=== PATIENT | female | born 1970 | race Hispanic/Latino ===

== ENCOUNTER 2018-09-16 11:51 | Emergency (ER) | payer SELFPAY ==
[2018-09-16] MEDS ORDERED: GEODON IM PRN (12:45)
--- NOTE | 2018-09-16 12:53 | Emergency Department Report ---
ED Psych HPI - General Chief Complaint: Psych Stated Complaint: ALTERED MENTAL Time Seen by Provider: 09/16/18 12:36 Source: patient, police Mode of arrival: Ambulatory - History of Present Illness Initial Comments: This is a 47-year-old female that was here last night complaining of chest pain. She has no active complaining of chest pain now. She was offered admission I believe but declined. She went home and apparently had some paranoid ideation related to her dogs being taking away. The police arrived at her home. She stated that she wanted to kill herself and that she was going to use a knife. There by a law enforcement executed was completed and the patient was transported to the emergency department. On arrival, the patient is acting quite paranoid with respect to interactions with the security guards and other staff. She also states that she's too anxious to sit in a chair. When I speak with her if she is currently denying active suicidal ideation. However she is currently paranoid. She has some looseness of association. She admits that she "doesn't like medicine" although she has been prescribed psychiatric medications past. She states that she was admitted to a psychiatric facility "about 15 years ago" for "anxiety". MD Complaint: suicidal ideation, other -: unknown (paranoid ideation) Associated Psychiatric Symptoms: suicidal ideation History of same: Yes (likely) Quality: intermittent Improves With: none Worsens With: none Context: not taking psychiatric Associated Symptoms: denies other symptoms Treatments Prior to Arrival: placed on mental he - Related Data Allergies Allergy/AdvReac Type Severity Reaction Status Date / Time promethazine [From Phenergan] Allergy Rash Verified 09/16/18 02:14 ED Review of Systems ROS: Stated complaint: ALTERED MENTAL Other details as noted in HPI Constitutional: denies: chills, fever Eyes: denies: eye pain, eye discharge, vision change ENT: denies: ear pain, throat pain Respiratory: denies: cough, shortness of breath, wheezing Cardiovascular: denies: chest pain (now resolved), palpitations Endocrine: no symptoms reported Gastrointestinal: denies: abdominal pain, nausea, diarrhea Genitourinary: denies: urgency, dysuria, discharge Musculoskeletal: denies: back pain, joint swelling, arthralgia Skin: denies: rash, lesions Neurological: denies: headache, weakness, paresthesias Psychiatric: anxiety, suicidal thoughts. denies: depression Hematological/Lymphatic: denies: easy bleeding, easy bruising ED Past Medical Hx - Past Medical History Previous Medical History?: Yes Hx CVA: Yes Hx Congestive Heart Failure: Yes Hx Psychiatric Treatment: Yes - Surgical History Past Surgical History?: Yes Additional Surgical History: c sec - Social History Smoking Status: Current Every Day Smoker (1 pack per day) Substance Use Type: None (denies illicit drug use) ED Physical Exam - General Limitations: Other (psychiatric disorder) General appearance: alert, in no apparent distress - Head Head exam: Present: atraumatic, normocephalic - Eye Eye exam: Present: normal appearance. Absent: scleral icterus - ENT ENT exam: Present: mucous membranes moist - Neck Neck exam: Present: normal inspection. Absent: tenderness, meningismus - Respiratory Respiratory exam: Present: normal lung sounds bilaterally. Absent: respiratory distress - Cardiovascular Cardiovascular Exam: Present: regular rate, normal rhythm. Absent: systolic murmur, diastolic murmur, rubs, gallop - GI/Abdominal GI/Abdominal exam: Present: soft, normal bowel sounds. Absent: distended, tenderness, guarding, rebound, rigid - Extremities Exam Extremities exam: Present: normal inspection. Absent: pedal edema - Back Exam Back exam: Present: normal inspection - Neurological Exam Neurological exam: Present: alert, oriented X3, CN II-XII intact, normal gait. Absent: motor sensory deficit - Psychiatric Psychiatric exam: Present: anxious, flat affect, other (paranoid ideation) - Skin Skin exam: Present: warm, dry, intact, normal color. Absent: rash ED Course - Reevaluation(s) Reevaluation #1: Discussed with mental health counselor. The patient is placed on a 1013 with the criteria of a paranoid psychiatric disorder and suicidal ideation. 09/16/18 14:33 ED Medical Decision Making - Lab Data Laboratory Results - last 24 hr 09/16/18 13:43 Total Creatine Kinase 210 H CK-MB (CK-2) 2.9 CK-MB (CK-2) Rel Index 1.3 Troponin T < 0.010 Critical care attestation.: If time is entered above; I have spent that time in minutes in the direct care of this critically ill patient, excluding procedure time. ED Disposition Clinical Impression: Paranoid psychosis, Suicidal ideation Disposition: [id number]/TX-65 PSY HOSP/PSY UNIT Is pt being admited?: No Does the pt Need Aspirin: No Condition: Stable Time of Disposition: 14:34
[2018-09-16 14:22] LABS: Creatine Kinase MB 2.9 ng/mL (0.0-4.0)
[2018-09-16 19:09] LABS: Bacteria,Urine 1+ /HPF (Negative); Bilirubin,Urine NEG (Negative); Blood,Urine SM (Negative); Color,Urine Yellow (Yellow); Mucus,Urine 1+ /HPF; Protein,Urine <15 mg/dL mg/dL (Negative); Urobilinogen,Urine < 2.0 mg/dL (<2.0)
[2018-09-16 19:10] LABS: Amphetamine Screen,Urine PRESUMPTIVE NEGATIVE; Benzodiazepines Screen,Urine PRESUMPTIVE NEGATIVE; Cannabinoid Screen,Urine PRESUMPTIVE NEGATIVE; Cocaine Screen,Urine PRESUMPTIVE NEGATIVE; HCG Qualitative,Urine Negative (Negative); Methadone Screen,Urine PRESUMPTIVE NEGATIVE; Opiate Screen,Urine PRESUMPTIVE NEGATIVE
--- NOTE | 2018-09-17 13:09 | Consultation ---
History of Present Illness - Reason for Consult Consult date: 09/17/18 Reason for consult: Mental Health EValuation Requesting physician: NIKHIL GOMEZ - Chief Complaint Chief complaint: "It's about my dogs" - History of Present Psychiatric Illness 47 y.o. female who presented to the ER for bizarre behavior. The patient was seen earlier yesterday fro chest pain. Today the patient was somewhat jeff ative during the assessment. She decided to leave the hospital before she was fully assessed by the ER Physician. Per the patient, she called the police once she left the hospital because she had an issue with her dogs that she could not explain when asked. During the interview, she was asked several questions about her behavior, but her answers were not logical. She paused and looked around for several mins before answering questions, possibly responding to some type of stimuli. She kept tissue paper close to her mouth throughout the interview, she stated that she was having issues with the pollen in the hospital. She stated that her sleep have been "off" the past couple of days. She stated that she have been to a mental health facility in the past. She denies SI/HI's and AVH's. She denies a poor appetite, recreational drug use, a poor appetite, and alcohol consumption (etoh). Medications and Allergies Allergies Allergy/AdvReac Type Severity Reaction Status Date / Time promethazine [From Phenergan] Allergy Rash Verified 09/16/18 02:14 Home Medications Medication Instructions Recorded Confirmed Last Taken Type Unobtainable 09/16/18 09/16/18 Unknown History Active Meds: Active Medications Ziprasidone (Geodon) 10 mg IM Q12H PRN PRN Reason: Agitation Past psychiatric history - Past Medical History Past Medical History: No medical history Past Surgical History: No surgical history - past Psychiatric treatment and history psychiatric treatment history: Inpatient psy services setting sin the past. Denies a fam psy hx. Mental Status Exam - Vital signs Last Vital Signs Temp 98.4 F 09/17/18 10:17 Pulse 63 09/17/18 10:17 Resp 18 09/17/18 10:17 BP 117/81 09/17/18 10:17 Pulse Ox 99 09/17/18 10:17 - Exam Narrative exam: MSE: Appearance: calm Behavior: regular eye contact Speech: regular rate and tone Mood: preoccupied Affect: congruent to mood Thought Process: loose associations Thought Content: denies SI/HI's and AVH', paranoia, delusional Motor Activity: sitting up in the bed Cognition: A/O x 3 Insight: poor Judgment: poor Results Abnormal lab results 09/16/18 09/16/18 Range/Units 13:43 13:43 Total Creatine Kinase 210 H (30-135) units/L Acetaminophen < 5.0 L (10.0-30.0) ug/mL All other labs normal. Assessment and Plan Assessment and plan: Impression: Unspecified Psychosis. Today the patient was somewhat cooperative during the assessment. UDS was negative. DDx: Bipolar DO with psychosis, R/O Schizophrenia Recommendation/Plan: Continue 1013. Start Geodon 20 mg Po BID for psychosis and Cogentin 0.5 mg PO BID for EPS prevention. Discussed possible metabolic side effects of Geodon with the patient, she verbalized understanding. Give Geodon with food. Dispo: The patient was referred to inpatient psy services. Staffed with Dr. Guzman Pat
[2018-09-17] MEDS: GEODON PO SCH ×2 (17:38→21:55)
[2018-09-17] MEDS: COGENTIN PO SCH ×2 (17:38→21:55)
[2018-09-17] MEDS ORDERED: HABITROL TD ONE (19:06)
[2018-09-18] MEDS: COGENTIN PO SCH ×2 (10:32→22:25)
[2018-09-18] MEDS: GEODON PO SCH ×2 (10:32→22:26)
--- NOTE | 2018-09-18 13:20 | Progress Note ---
Subjective - Reason for Consult Consult date: 09/18/18 Reason for consult: Psychiatric Follow-up Evaluation - Chief Complaint Chief complaint: "I feel good" Patient is a 47 y.o. female who presented to the ER for bizarre behavior. Today the patient is cooperative but anxious during the assessment. Today patient is unable to answer questions directly. Her answers to questions are not logical. Patient thoughts are tangential with flight of ideas. She states, " ma'am I hadn't slept in days. 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 I had to run through the [employer] for security clearance." She denies SI/HI's and A/VH's. Patient continues to have delusional thinking. Patient refused Geodon. Patient is noncompliant with medication. Mental Status Exam - Vital signs Last Vital Signs Temp 97.6 F 09/18/18 10:04 Pulse 75 09/18/18 10:04 Resp 16 09/18/18 10:04 BP 135/71 09/18/18 10:04 Pulse Ox 100 09/18/18 10:04 - Exam Narrative exam: Mental Status Exam: Appearance: calm Behavior: regular eye contact Speech: rapid rate and normal tone Mood: " I feel good" ; anxious, irritable Affect: congruent to mood Thought Process: tangential, flight of ideas Thought Content: denies SI/HI's and AVH's ; delusions- paranoia/believes her ex boyfriend is out to harm her. Motor Activity: ambulatory Cognition: A/O x 3 Insight: poor Judgment: poor Assessment and Plan Impression: Unspecified Psychosis. Today the patient was cooperative but anxious during the assessment. She continues to have rapid speech, paranoid delusions, and tangential thoughts. UDS was negative. DDx: Bipolar DO with psychosis, R/O Schizophrenia Recommendation/Plan: 1. Continue 1013. 2. Start/Continue Geodon 20 mg Po BID for psychosis and Cogentin 0.5 mg PO BID for EPS prevention. Discussed possible metabolic side effects of Geodon with the patient, she verbalized understanding. Give Geodon with food. 3. Encouraged medication compliance. Disposition: The patient was referred to inpatient psychiatric services. Staffed with Dr. Guzman Pat
[2018-09-19] MEDS: GEODON PO SCH ×2 (10:51→22:16)
[2018-09-19] MEDS: COGENTIN PO SCH ×2 (10:51→22:16)
--- NOTE | 2018-09-19 11:14 | Progress Note ---
Subjective - Reason for Consult Consult date: 09/19/18 Reason for consult: Psychiatry Follow-up - Chief Complaint Chief complaint: "I am okay" 47 y.o. female who presented to the ER for bizarre behavior. Today the patient was calm during the assessment. Her answer to questions are not logical. She is adamant that she has several job interviews and need [employer] security clearance. She is refusing her Gdodon per the MAR. She denies SI/HI's and AVH's. Mental Status Exam - Vital signs Last Vital Signs Temp 98 F 09/19/18 01:00 Pulse 65 09/19/18 01:00 Resp 18 09/19/18 01:00 BP 104/70 09/19/18 01:00 Pulse Ox 99 09/19/18 01:00 - Exam Narrative exam: MSE: Appearance: calm Behavior: regular eye contact Speech: regular rate and tone Mood: "okay" Affect: flat Thought Process: circumstantial Thought Content: denies SI/HI's and AVH', delusional Motor Activity: sitting up in the bed Cognition: A/O x 3 Insight: poor Judgment:variable Assessment and Plan Impression: Unspecified Psychosis. Today the patient is calm during the assessment. UDS was negative. DDx: Bipolar DO with psychosis, R/O Schizophrenia Recommendation/Plan: Continue 1013, Geodon 20 mg PO BID for psychosis, and Cogentin 0.5 mg PO BID for EPS prevention. Discussed possible metabolic side effects of Geodon with the patient, she verbalized understanding. Give Geodon with food. Dispo: The patient was referred to inpatient psy services. Will staff with Dr. Guzman Pat
[2018-09-20 06:34] LABS: Hematocrit 38.3 % (30.3-42.9); Hemoglobin 13.1 gm/dl (10.1-14.3); Mean Corpuscular HGB Conc 34 % (30-34); Mean Corpuscular Volume 87 fl (79-97); Platelet Count 206 K/mm3 (140-440); Red Blood Count 4.39 M/mm3 (3.65-5.03); Red Cell Distribution Width 13.2 % (13.2-15.2)
[2018-09-20] MEDS: GEODON PO SCH ×2 (10:49→22:27)
[2018-09-20] MEDS: COGENTIN PO SCH ×2 (10:49→22:27)
--- NOTE | 2018-09-20 15:36 | Progress Note ---
Subjective - Reason for Consult Consult date: 09/20/18 Reason for consult: Psychiatry Follow-up - Chief Complaint Chief complaint: When can I leave" 47 y.o. female who presented to the ER for bizarre behavior. Today the patient was calm during the assessment. She still present with delusional thoughts reference job interviews. Per collateral information from patient's daughter Stacey Cortez at [phone], she stated that the patient have been "p aranoid" for several months. She stated that her mother have been making irrational decisions lately. She stated that she wasn't aware her mother was traveling from [place] to [place] with one set of clothes. She stated that the patient have been hospitalized in the past for psychosis and SI's. The patient denies SI/HI's and AVH's. She denies any side effects of her medications. Mental Status Exam - Vital signs Last Vital Signs Temp 98.1 F 09/20/18 13:53 Pulse 96 H 09/20/18 13:53 Resp 18 09/20/18 13:53 BP 119/74 09/20/18 13:53 Pulse Ox 99 09/20/18 13:53 - Exam Narrative exam: MSE: Appearance: calm Behavior: regular eye contact Speech: regular rate and tone Mood: "okay" Affect: flat Thought Process: circumstantial Thought Content: denies SI/HI's and AVH', delusional Motor Activity: sitting up in the bed Cognition: A/O x 3 Insight: poor Judgment: variable Assessment and Plan Impression: Unspecified Psychosis. Today the patient is calm during the assessment. UDS was negative. DDx: Bipolar DO with psychosis, R/O Schizophrenia Recommendation/Plan: Continue 1013, Geodon 20 mg PO BID for psychosis, and Cogentin 0.5 mg PO BID for EPS prevention. Discussed possible metabolic side effects of Geodon with the patient, she verbalized understanding. Give Geodon with food. Dispo: The patient was referred to inpatient psy services. Staffed with Dr. Guzman Pat
--- NOTE | 2018-09-21 08:00 | Progress Note ---
Subjective - Reason for Consult Consult date: 09/21/18 Reason for consult: Psychiatry Follow-up - Chief Complaint Chief complaint: "I'm okay" 47 y.o. female who presented to the ER for bizarre behavior. Today the patient was calm during the assessment. She is more lucid during the interview today. She stated that her behavioral have not been irrational per collateral information from her daughter Stacey.. She stated that she does have cameras around her home, because she reside in a "bad neighborhood." She denies being "paranoid." She denies SI/HI's and AVH's. She denies any side effects of her medications. Mental Status Exam - Vital signs Last Vital Signs Temp 98.2 F 09/21/18 07:46 Pulse 51 L 09/21/18 07:46 Resp 20 09/21/18 07:46 BP 126/73 09/21/18 07:46 Pulse Ox 100 09/21/18 07:46 - Exam Narrative exam: MSE: Appearance: calm, cooperative Behavior: regular eye contact Speech: regular rate and tone Mood: "okay" Affect: congruent to mood Thought Process: circumstantial Thought Content: denies SI/HI's and AVH's Motor Activity: sitting up in the bed Cognition: A/O x 3 Insight: variable to fair Judgment: variable to fair Assessment and Plan Impression: Unspecified Psychosis. Today the patient is calm during the assessment. UDS was negative. DDx: Bipolar DO with psychosis, R/O Schizophrenia Recommendation/Plan: Reevaluate the patient's 1013 in 24 hours. Continue Geodon 20 mg PO BID for psychosis and Cogentin 0.5 mg PO BID for EPS prevention. Discussed possible metabolic side effects of Geodon with the patient, she verbalized understanding. Give Geodon with food. Dispo: If the patient's 1013 is rescinded in 24 hours, she can follow up at [facility] for outpatient psy services. The patient will be given a referral for a outpatient behavioral health facility in her local area in [place]. Staffed with Dr. Guzman Pat
[2018-09-21] MEDS: COGENTIN PO SCH ×2 (12:39→22:05)
[2018-09-21] MEDS: GEODON PO SCH ×2 (12:40→22:07)
[2018-09-22 08:50] VITALS: BP 119/66
[2018-09-22] MEDS: COGENTIN PO SCH (09:38)
[2018-09-22] MEDS: GEODON PO SCH (09:38)
--- NOTE | 2018-09-22 10:20 | Progress Note ---
Subjective - Reason for Consult Consult date: 09/22/18 Reason for consult: Psychiatry Follow-up - Chief Complaint Chief complaint: "I will return home" 47 y.o. female who presented to the ER for bizarre behavior. Today the patient was calm during the assessment. She is more lucid during the interview today. She stated that she paln to return home to [place]. She stated that she has a therapist name Val Welsh who she plan to see once she return home. She stated that she has gotten lost of rest since being in the ER. She denies SI/HI's and AVH's. She denies any side effects of her medications. Mental Status Exam - Vital signs Last Vital Signs Temp 98.9 F 09/22/18 08:15 Pulse 68 09/22/18 08:15 Resp 18 09/22/18 08:15 BP 119/66 09/22/18 08:15 Pulse Ox 99 09/22/18 08:15 - Exam Narrative exam: MSE: Appearance: calm, cooperative Behavior: regular eye contact Speech: regular rate and tone Mood: "okay" Affect: congruent to mood Thought Process: logical Thought Content: denies SI/HI's and AVH's Motor Activity: sitting up in the bed Cognition: A/O x 3 Insight: appropriate Judgment: appropriate Assessment and Plan Impression: Unspecified Psychosis. Today the patient is calm and cooperative during the assessment. UDS was negative. DDx: Bipolar DO with psychosis, R/O Schizophrenia Recommendation/Plan: Rescind 1013 and Continue Geodon 20 mg PO BID and Cogentin 0.5 mg PO BID. Discussed possible metabolic side effects of Geodon with the patient, she verbalized understanding. Give Geodon with food. Dispo: The patient was given a list of mental health facilities in her local area for outpatient psy services ([place]). Will staff with Dr. Guzman Pat
== END 2018-09-22 11:00 | disposition home or self-care (01) ==
LOC: EEVIPCON 11:51 → ED 11:51
DX: F22 Delusional disorders (principal); I50.9 Heart failure, unspecified; F17.200 Nicotine dependence, unspecified, uncomplicated; Z86.73 Personal history of transient ischemic attack (TIA), and cerebral infarction without residual deficits; Z88.8 Allergy status to other drugs, medicaments and biological substances
CPT/HCPCS: 36415; 80307; 81001; 81025; 82550; 82553; 84484; 85027; 93005; 93010; 99284; G0480; 80320

== ENCOUNTER → 2018-09-16 | Emergency (ER) | payer SELFPAY ==
[~2018-09-16] MED LIST: ASPIRIN PO ONE
[2018-09-16 02:50] LABS: Basophils % (Auto) 0.3 % (0.0-1.8); Eosinophils # (Auto) 0.1 K/mm3 (0.0-0.4); Eosinophils % (Auto) 0.8 % (0.0-4.3); Hemoglobin 14.4 gm/dl (10.1-14.3); Lymphocytes # (Auto) 1.9 K/mm3 (1.2-5.4); Lymphocytes % (Auto) 18.8 % (13.4-35.0); Mean Corpuscular HGB Conc 34 % (30-34); Mean Corpuscular Volume 87 fl (79-97); Monocytes # (Auto) 0.6 K/mm3 (0.0-0.8); Monocytes % (Auto) 5.7 % (0.0-7.3); Platelet Count 207 K/mm3 (140-440); Red Cell Distribution Width 13.4 % (13.2-15.2)
[2018-09-16 03:11] LABS: BUN/Creatinine Ratio 13; Blood Urea Nitrogen 8 mg/dL (7-17); Calcium 9.3 mg/dL (8.4-10.2); Hemolysis Index 28
--- NOTE | 2018-09-16 03:15 | XRay Report ---
PROCEDURE: XR CHEST ROUTINE 2V TECHNIQUE: PA and lateral chest radiographs were obtained. HISTORY: chest pain COMPARISONS: None. FINDINGS: Heart: Normal. Mediastinum/Vessels: Normal. Lungs/Pleural space: Normal. Bony thorax: No acute osseous abnormality. IMPRESSION: Normal examination. This document is electronically signed by Marley Louie DO., Sep 16 2018 03:13:23 AM ET
[2018-09-16 03:53] VITALS: BP 138/88
--- NOTE | 2018-09-16 04:14 | Emergency Department Report ---
HPI - General Chief Complaint: Chest Pain Time Seen by Provider: 09/16/18 04:09 - HPI HPI: Room 18 The patient is a 47-year-old female presenting with a chief complaint of chest pain. The patient states this evening while driving she developed substernal chest pain described as squeezing and intermittent in nature. Patient states she felt dizzy and became diaphoretic with shortness of breath nausea and vomiting. The patient currently gets her pain score of 6/10. The patient states her last stress test occurred approximately 7 years ago but she's never had a cardiac catheterization Location: Chest Duration: Intermittent Times one night Quality: Squeezing Severity:6/10 Modifying factors: [see above] Context: [see above] Mode of transportation: [not driving] ED Past Medical Hx - Past Medical History Previous Medical History?: Yes Hx CVA: Yes Hx Congestive Heart Failure: Yes - Surgical History Past Surgical History?: Yes Additional Surgical History: c sec - Family History Family history: no significant - Social History Smoking Status: Current Every Day Smoker (1 pack per day) Substance Use Type: None (denies illicit drug use) ED Review of Systems ROS: Stated complaint: CHEST PAIN Other details as noted in HPI Constitutional: diaphoresis Eyes: denies: eye pain ENT: denies: throat pain Respiratory: shortness of breath Cardiovascular: chest pain Endocrine: no symptoms reported Gastrointestinal: nausea, vomiting Musculoskeletal: denies: back pain Neurological: denies: headache Physical Exam - Physical Exam Vital Signs: Vital Signs 09/16/18 09/16/18 09/16/18 02:15 02:16 03:51 Temperature 98.3 F 98.3 F 98.3 F Pulse Rate 104 H 109 H 96 H Respiratory 18 18 22 Rate Blood Pressure 183/93 183/93 Blood Pressure 138/88 [Right] O2 Sat by Pulse 97 97 98 Oximetry 09/16/18 03:53 Temperature Pulse Rate Respiratory 22 Rate Blood Pressure Blood Pressure [Right] O2 Sat by Pulse 97 Oximetry Physical Exam: GENERAL: The patient is well-developed well-nourished female lying on stretcher not appearing to be in acute distress. [] HEENT: Normocephalic. Atraumatic. Extraocular motions are intact. Patient has moist mucous membranes. NECK: Supple. Trachea midline CHEST/LUNGS: Clear to auscultation. There is no respiratory distress noted. HEART/CARDIOVASCULAR: Regular. There is no tachycardia. There is no gallop rub or murmur. ABDOMEN: Abdomen is soft, nontender. Patient has normal bowel sounds. There is no abdominal distention. SKIN: There is no rash. There is no edema. There is no diaphoresis. NEURO: The patient is awake, alert, and oriented. The patient is cooperative. The patient has no focal neurologic deficits. The patient has normal speech and gait. MUSCULOSKELETAL: There is no evidence of acute injury. ED Course Vital Signs 09/16/18 09/16/18 09/16/18 02:15 02:16 03:51 Temperature 98.3 F 98.3 F 98.3 F Pulse Rate 104 H 109 H 96 H Respiratory 18 18 22 Rate Blood Pressure 183/93 183/93 Blood Pressure 138/88 [Right] O2 Sat by Pulse 97 97 98 Oximetry 09/16/18 03:53 Temperature Pulse Rate Respiratory 22 Rate Blood Pressure Blood Pressure [Right] O2 Sat by Pulse 97 Oximetry ED Medical Decision Making - Lab Data Result diagrams: 09/16/18 02:31 09/16/18 02:31 Laboratory Tests 09/16/18 09/16/18 02:31 02:31 WBC 10.2 RBC 4.80 Hgb 14.4 H Hct 42.0 MCV 87 MCH 30 MCHC 34 RDW 13.4 Plt Count 207 Lymph % (Auto) 18.8 [place] % (Auto) 5.7 Eos % (Auto) 0.8 Baso % (Auto) 0.3 Lymph # 1.9 [place] # 0.6 Eos # 0.1 Baso # 0.0 Seg Neutrophils % 74.4 H Seg Neutrophils # 7.6 Sodium 141 Potassium 3.6 Chloride 102.5 Carbon Dioxide 23 Anion Gap 19 BUN 8 Creatinine 0.6 L Estimated GFR > 60 BUN/Creatinine Ratio 13 Glucose 129 H Calcium 9.3 Troponin T < 0.010 - EKG Data -: EKG Interpreted by Me EKG shows normal: sinus rhythm Rate: normal - EKG Data When compared to previous EKG there are: previous EKG unavailable Interpretation: other (no ischemic changes seen) - Radiology Data Radiology results: report reviewed (chest x-ray), image reviewed (chest x-ray) interpreted by me: Chest x-ray-no focal infiltrate, no pneumothorax [facility] [address] [place] [address] XRay Report Signed Patient: JANUSZ FERRIS MR#: [id number] : 1970 Acct:[id number] Age/Sex: 47 / F ADM Date: 09/16/18 Loc: ED Attending Dr: Ordering Physician: OZIEL MOREIRA MD Date of Service: 09/16/18 Procedure(s): XR chest routine 2V Accession Number(s): [id number] cc: OZIEL MOREIRA MD Fluoro Time In Minutes: PROCEDURE: XR CHEST ROUTINE 2V TECHNIQUE: PA and lateral chest radiographs were obtained. HISTORY: chest pain COMPARISONS: None. FINDINGS: Heart: Normal. Mediastinum/Vessels: Normal. Lungs/Pleural space: Normal. Bony thorax: No acute osseous abnormality. IMPRESSION: Normal examination. This document is electronically signed by Evie Louie DO., Sep 16 2018 03:13 :23 AM ET Transcribed By: [facility] Dictated By: EVIE LOUIE MD Electronically Authenticated By: EVIE LOUIE MD Signed Date/Time: 09/16/18314 DD/ 5 TD/TT: 09/16/18255 - Differential Diagnosis ACS, pericarditis, GERD Critical care attestation.: If time is entered above; I have spent that time in minutes in the direct care of this critically ill patient, excluding procedure time. ED Disposition Clinical Impression: Chest pain Disposition: OP ADMIT IP TO THIS HOSP Is pt being admited?: Yes Does the pt Need Aspirin: Yes Condition: Fair Instructions: Chest Pain (ED) Time of Disposition: 04:13 (hospitalist paged (Dr Dumont))
== END | disposition admitted as inpatient to this hospital (09) ==
LOC: ED 02:13
DX: R07.89 Other chest pain (principal); R42 Dizziness and giddiness; R06.02 Shortness of breath; I50.9 Heart failure, unspecified; F17.200 Nicotine dependence, unspecified, uncomplicated; Z86.73 Personal history of transient ischemic attack (TIA), and cerebral infarction without residual deficits; Z88.8 Allergy status to other drugs, medicaments and biological substances
CPT/HCPCS: 36415; 71046; 80048; 84484; 85025; 93005; 93010